=== PATIENT | male | born 1995 | race Caucasian/White ===

== ENCOUNTER 2021-08-25 02:42 | Emergency (ER) | payer SELFPAY ==
[~2021-08-25] VITALS: Ht 154.9 cm; Wt 97.5 kg
[2021-08-25 03:03] VITALS: BP 157/73
--- NOTE | 2021-08-25 03:05 | NUR ---
DASHRA 39 FROM HOME C.O FELL AND HIT HEAD +ETOH +MARIJUANA. PLACED IN ROOM 2. VITALS CHECKED. -SOB,-CP, PATIENT IS AWAKE AND ASKING TO HAVE A CT SCAN. TOLD PATIENT THAT DOCTOR WILL COME TO EXAMINE HIM FIRST.
--- NOTE | 2021-08-25 03:15 | NUR ---
PT WAS SEEN WALKING OUT BY ADMITTING STAFF.
== END 2021-08-25 03:59 | disposition left against medical advice (07) ==
LOC: ER 02:50
DX: S09.90XA Unspecified injury of head, initial encounter (principal); W19.XXXA Unspecified fall, initial encounter; Y93.89 Activity, other specified; Y92.89 Other specified places as the place of occurrence of the external cause; Y99.8 Other external cause status